=== PATIENT | male | born 1955 | race Caucasian/White ===

== ENCOUNTER → 2017-06-10 | Outpatient (CLI) | payer OTHER | END | disposition home or self-care (01) | LOC: PCVCIMAG 14:53 | DX: I08.1 Rheumatic disorders of both mitral and tricuspid valves (principal); I10 Essential (primary) hypertension; I48.91 Unspecified atrial fibrillation; Z82.49 Family history of ischemic heart disease and other diseases of the circulatory system; Z87.891 Personal history of nicotine dependence; Z79.82 Long term (current) use of aspirin | CPT/HCPCS: 80061; 93005; 93306; G0463 ==

== ENCOUNTER → 2018-09-02 | Outpatient (CLI) | payer OTHER ==
--- NOTE | 2018-09-02 16:41 | PCVCIMAG ---
APPROVED REPORT Study performed: 09/02/2018 14:27:48 EXAM: Comprehensive 2D, Doppler, and color-flow Echocardiogram Patient Location: Echo lab Status: routine BSA: 1.81 HR: 93 bpmBP: 140/90 mmHg Rhythm: NSR Other Information Study Quality: Adequate Risk Factors: Cardiac Risk Factors: HTN, Smoking Indications Atrial Fibrillation Family history of CAD 2D Dimensions IVSd: 14.01 (7-11mm)LVOT Diam: 19.56 (18-24mm) LVDd: 35.51 mm PWd: 10.84 (7-11mm)Ascending Ao: 42.70 (22-36mm) LVDs: 31.71 (25-40mm) Left Atrium: 34.89 (27-40mm) Aortic Root: 31.64 mm LV Single Plane 4CH: 47.94 % LV Single Plane 2CH: 55.06 % Biplane EF: 51.9 % Volumes Left Atrial Volume (Systole) Single Plane 4CH: 57.57 mLSingle Plane 2CH: 60.83 mL LA ESV Index: 37.00 mL/m2 Aortic Valve AoV Peak Óscar.: 1.26 m/s AO Peak Gr.: 7.23 mmHgLVOT Max P.19 mmHg LVOT Max V: 1.05 m/s LORI Vmax: 2.48 cm2 Mitral Valve E/A Ratio: 1.0 MV E Max Óscar.: 0.96 m/s MV A Óscar.: 0.95 m/s Pulmonary Valve PV Peak Gr.: 1.96 mmHg Tricuspid Valve TR Peak Óscar.: 2.29 m/s TR Peak Gr.: 26.71 mmHg Left Ventricle The left ventricle is normal size. There is normal LV segmental wall motion. There is normal left ventricular wall thickness. Left ventricular systolic function is normal. The left ventricular ejection fraction is within the normal range. LVEF is 55%. The left ventricular diastolic function is normal. Right Ventricle The right ventricle is normal size. The right ventricular systolic function is normal. Atria The left atrium size is normal. The right atrium size is normal. Aortic Valve The aortic valve is normal in structure. No aortic regurgitation is present. There is no aortic valvular stenosis. Mitral Valve The mitral valve is normal in structure. Mild mitral regurgitation. No evidence of mitral valve stenosis. Tricuspid Valve The tricuspid valve is normal in structure. Mild to moderate tricuspid regurgitation. Pulmonary artery pressure is 34mmhg. Pulmonic Valve The pulmonary valve is normal in structure. There is no pulmonic valvular regurgitation. Great Vessels The aortic root is normal in size. The ascending aorta is dilated measuring 4.3cm. IVC is normal in size and collapses >50% with inspiration. Pericardium There is no pericardial effusion. <Conclusion> The left ventricle is normal size. LVEF is 55%. The left ventricular diastolic function is normal. The right ventricle is normal size. The left atrium size is normal. The aortic valve is normal in structure. Mild mitral regurgitation. Mild to moderate tricuspid regurgitation. Pulmonary artery pressure is 34mmhg. The aortic root is normal in size. The ascending aorta is dilated measuring 4.3cm. There is no pericardial effusion.
== END | disposition home or self-care (01) ==
LOC: PCVCIMAG 14:20
PROVIDERS: ATTEND Internal Medicine Cardiovascular Disease
DX: I08.1 Rheumatic disorders of both mitral and tricuspid valves (principal); E78.00 Pure hypercholesterolemia, unspecified; I48.2 Chronic atrial fibrillation; Z87.891 Personal history of nicotine dependence
CPT/HCPCS: 93306